=== PATIENT | male | born 1955 | race Caucasian/White ===

== ENCOUNTER 2016-10-08 07:23 | Day surgery (SDC) | payer OTHER ==
[~2016-10-08] VITALS: Ht 172.7 cm; Wt 87.0 kg
[2016-10-08] VITALS (9 sets, daily range): BP systolic 131–173; BP diastolic 71–98; PULSE 76–87; RESP 14–20; Ht 172.7 cm; Wt 87.0 kg
[~2016-10-08 07:23] MED LIST: CEFAZOLIN 2 GM/50 ML (PMX) 50 ML IVPB ONE; SOD CHLORIDE 0.9% 1,000 ML IV SCH
[2016-10-08] MEDS ORDERED: GLIP-95 PO (08:07)
[2016-10-08] MEDS ORDERED: HYDR-842 PO (08:08)
[2016-10-08] MEDS ORDERED: SIMV20TA PO (08:09)
--- NOTE | 2016-10-08 08:32 | RADRPT ---
PROCEDURE: XR Chest. CLINICAL INDICATION: Preoperative. TECHNIQUE: Single frontal view. COMPARISON: None. FINDINGS: The lungs are clear. The heart size is normal. There is no pleural effusion. There is no pneumothorax. IMPRESSION: 1. Normal chest radiograph. RPTAT: QQ .Miguel John MD, Date Time Electronically viewed and signed by .Miguel John MD, on 10/08/2016 08:31 .R/
[2016-10-08] MEDS ORDERED: BUPIVACAINE 0.25% (MPF) 30 ML INJ ONE (09:48)
[2016-10-08] MEDS ORDERED: LIDOCAINE 2% (SDV) 5 ML INJ ONE (09:54)
[2016-10-08] MEDS ORDERED: NEOSTIGMINE 3 MG/3 ML SYRINGE ONE ×2 (09:54→10:27)
[2016-10-08] MEDS ORDERED: PROPOFOL 20 ML ONE (09:54)
[2016-10-08] MEDS ORDERED: ROCURONIUM 50 MG INJ ONE ×2 (09:54→10:53)
[2016-10-08] MEDS ORDERED: MEPERIDINE 100 MG INJ ONE (09:54)
[2016-10-08] MEDS ORDERED: GLYCOPYRROLATE 0.4 MG INJ ONE ×2 (09:54→10:27)
[2016-10-08] MEDS ORDERED: SUCCINYLCHOLINE CHLORIDE 100 MG/5 ML SYG IV ONE (09:54)
[2016-10-08] MEDS ORDERED: CEFAZOLIN 1 GM INJ ONE ×2 (09:58→10:27)
[2016-10-08] MEDS ORDERED: ONDANSETRON 4 MG INJ ONE (09:58)
[2016-10-08] MEDS ORDERED: EPHEDrine SULFATE 50 MG/5 ML SYG IV PRN (10:00)
[2016-10-08] MEDS ORDERED: DIPHENHYDRAMINE 50 MG INJ IV PRN (10:00)
[2016-10-08] MEDS ORDERED: MIDAZOLAM 1 MG/ML 2 ML INJ IV PRN (10:00)
[2016-10-08] MEDS ORDERED: MEPERIDINE 25 MG INJ IV PRN (10:00)
[2016-10-08] MEDS ORDERED: hydrALAzine 20 MG INJ IV PRN (10:00)
[2016-10-08] MEDS ORDERED: OXYCODONE/ACETAMINOPHEN (5/325) TAB PO PRN ×2 (10:00)
[2016-10-08] MEDS ORDERED: FENTAnyl 50 MCG/ML VIAL IV PRN ×3 (10:00)
[2016-10-08] MEDS ORDERED: ONDANSETRON 4 MG INJ IV PRN (10:00)
[2016-10-08] MEDS ORDERED: LABETALOL HCL 20MG INJ IV PRN (10:00)
[2016-10-08] MEDS ORDERED: HYDROmorphONE (0.2 MG/ML) 10ML SYG IV PRN ×3 (10:00)
[2016-10-08] MEDS ORDERED: METOCLOPRAMIDE 10 MG INJ IV PRN (10:00)
[2016-10-08] MEDS ORDERED: DEXAMETHASONE 4 MG/ML 1 ML INJ ONE (10:18)
[2016-10-08] MEDS ORDERED: LABETALOL HCL 20MG INJ ONE (10:56)
[2016-10-08] MEDS ORDERED: HYDROCODONE/APAP (5/325) TAB PO ONE (11:00)
--- NOTE | 2016-10-08 11:07 | OPR ---
Date/Time of Note Date/Time of Note DATE: 10/08/16 TIME: 11:01 Operative Report Procedure Date: Oct 08, 2016 Preoperative Diagnosis symptomatic gallstones and liver steatosis Postoperative Diagnosis same Operation Performed 1. laparoscopic choelcystectomy 2. wedge liver biopsy cpt code 98411 3. therapeutic injection of subcutaneous marcaine cpt code 42097 Surgeon: Haim LANCASTER Boiler Water Tester: SIMONE MORIN MD Anesthesia Type: general Specimens gallbladder liver wedge biopsy Grafts/Implants: none Complications: no Indications This is a 60-year-old male with symptomatic gallstones and liver steatosis. He requires surgical repair risks alternatives benefits and percent were discussed the patient. Patient expresses understanding consents to the operation. Procedure Description Patient taken to the OR and prepped and draped in usual sterile fashion. Surgical timeout was performed. IV antibiotics were given. Infraumbilical transverse incision is made with a 15 blade. Dissection cautery was carried onto the fascia which is grasped with Jes's and divided with curved Frey scissors. 0 Vicryl U stitch is placed into the fascia. Balloon Araiza trocar is introduced pneumoperitoneum is established. Midepigastric 12 mm optical trocar was placed under direct visualization. Right upper quadrant right upper flank 5 mm optical trochars were placed under direct visualization. Upon initial inspection there is some adhesions of the gallbladder which were taken down bluntly lateral dissection was initiated with her cautery. The fundus was grasped and the lateral and outward direction thus allowing further dissection of the cystic duct. The cystic duct was dissected out and the critical view was established. The cystic duct was divided with 3 clips proximal and due to the thickened cystic duct distally was divided with a 35 mm echelon vascular stapler. The cystic artery was divided with 3 clips proximal 1 clip distal. The gallbladder was taken off the gallbladder bed. The gallbladder was retrieved using an Endo Catch bag. The gallbladder bed was hemostatic. Due to liver steatosis liver wedge biopsy was performed at the border of segment 5 and 6. This area was excised using scissor cautery. There is good hemostasis at the surgical site. The wedge biopsy was retrieved using laparoscopic instruments through the midepigastric port. Ports removed under direct visualization. 0 Vicryl U stitch was tied down. Skin was closed using skin molly. Therapeutic subcutaneous Marcaine was injected throughout all port sites. Dry dressings were applied. Haim LANCASTER Oct 08, 2016 11:07
--- NOTE | 2016-10-08 15:37 | RADRPT ---
Vent Rate: 87 bpm RR Interval: 0 msec WV Interval: 142 msec QRS Duration: 74 msec QT Interval: 372 msec QTC Interval: 447 msec P-R-T [place]: 78 - 59 - 72 degrees Normal sinus rhythm Normal ECG Electronically Signed By: Neto Hood [id number]
== END 2016-10-08 14:03 | disposition home or self-care (01) ==
LOC: SDS 07:23
PROVIDERS: ATTEND Surgery
DX: K82.4 Cholesterolosis of gallbladder (principal); K76.0 Fatty (change of) liver, not elsewhere classified; E11.9 Type 2 diabetes mellitus without complications
CPT/HCPCS: 47379; 47562; 71010; 82962; 88304; 88307; 88313; 93005; J0360; J0690; J1100; J2175; J2405; J7999; J2710; J3010